=== PATIENT | female | born 1995 | race Caucasian/White ===

== ENCOUNTER 2019-01-15 00:24 | Inpatient (IN) | payer BC ==
[2019-01-15] MEDS ORDERED: Water For Irrigation,Sterile 1,000 ML Container IRR PRN (00:42)
[2019-01-15] MEDS ORDERED: Sodium Chloride 0.9% 2.5 ML Syringe FLUSH PRN (00:42)
[2019-01-15] MEDS ORDERED: Ondansetron 4 MG/2 ML SDV IV PRN (00:42)
[2019-01-15] MEDS ORDERED: Lidocaine 1% 50 ML MDV INJECT PRN (00:42)
[2019-01-15] MEDS ORDERED: Tranexamic Acid 1,000 MG in Sodium Chloride 0.9% 100 ML IV PRN (00:42)
[2019-01-15] MEDS ORDERED: Terbutaline 1 MG/ML SDV SUBCUT PRN (00:42)
[2019-01-15] MEDS ORDERED: Nalbuphine 10 MG/1 ML Vial IVPUSH PRN (00:42)
[2019-01-15] MEDS ORDERED: Methylergonovine 0.2 MG/1 ML Amp IM PRN (00:42)
[2019-01-15] MEDS ORDERED: Misoprostol 200 MCG Tab PO PRN (00:42)
[2019-01-15] MEDS ORDERED: Carboprost Tromethamine 250 MCG/1 ML Amp IM PRN (00:42)
[2019-01-15] MEDS ORDERED: Sodium Chloride 0.9% 10 ML Syringe FLUSH PRN (00:42)
[2019-01-15] MEDS ORDERED: Butorphanol 1 MG/ML SDV IVPUSH PRN (00:42)
[2019-01-15] MEDS ORDERED: Sodium Chloride 0.9% 10 ML SDV IV PRN (00:42)
[2019-01-15] MEDS ORDERED: Oxytocin/0.9 % Sodium Chloride 30 UNIT/500 ML BAG IV SCH ×2 (00:45)
[2019-01-15] MEDS: Lactated Ringers 1,000 ML IV SCH ×3 (01:36→10:58)
[2019-01-15] MEDS ORDERED: Calcium Carbonate 500 MG Tab.Chew PO PRN (01:43)
[2019-01-15] MEDS ORDERED: fentaNYL 100 MCG/2 ML SDV ONE (09:26)
[2019-01-15] MEDS ORDERED: Lidocaine HCl/EPINEPHrine 5 ML IJ ONE (09:27)
[2019-01-15] MEDS ORDERED: Bupivacaine 0.5% 10 ML SDV ONE (09:58)
--- NOTE | 2019-01-15 10:30 | PCM.PREANE ---
Preanesthetic Assessment - Procedure Proposed Procedure: labor epidural - Anesthesia/Transfusion/Family Hx Anesthesia History: Prior Anesthesia Without Reaction Family History of Anesthesia Reaction: No Transfusion History: No Prior Transfusion(s) - Review of Systems General: No Symptoms Pulmonary: No Symptoms Cardiovascular: No Symptoms Gastrointestinal: No Symptoms Neurological: No Symptoms Other: Reports: None, Anxiety - Physical Assessment Height: 5 ft 5 in Weight: 186 kg ASA Class: 2 Mental Status: Alert & Oriented x3 Airway Class: Mallampati = 1 Dentition: Reports: Normal Dentition ROM/Head Extension: Full Lungs: Clear to Auscultation, Normal Respiratory Effort Cardiovascular: Regular Rate, Regular Rhythm - Lab Values: Laboratory Last Values WBC 11.74 K/uL (4.0-11.0) H 01/15/19 01:00 RBC 3.65 M/uL (4.30-5.90) L 01/15/19 01:00 Hgb 9.9 g/dL (12.0-16.0) L 01/15/19 01:00 Hct 31.2 % (36.0-46.0) L 01/15/19 01:00 MCV 85.5 fL (80.0-98.0) 01/15/19 01:00 MCH 27.1 pg (27.0-32.0) 01/15/19 01:00 MCHC 31.7 g/dL (31.0-37.0) 01/15/19 01:00 RDW Std Deviation 46.2 fl (28.0-62.0) 01/15/19 01:00 RDW Coeff of Toby 15 % (11.0-15.0) 01/15/19 01:00 Plt Count 165 K/uL (150-400) 01/15/19 01:00 MPV 11.30 fL (7.40-12.00) 01/15/19 01:00 Nucleated RBC % 0.0 /100WBC 01/15/19 01:00 Nucleated RBCs # 0 K/uL 01/15/19 01:00 Blood Type A POSITIVE 01/15/19 01:00 Antibody Screen NEGATIVE 01/15/19 01:00 - Allergies Allergies/Adverse Reactions: Allergies Allergy/AdvReac Type Severity Reaction Status Date / Time No Known Allergies Allergy Verified 01/15/19 00:26 - Blood Blood Available: No Product(s) Available: None - Anesthesia Plan Pre-Op Medication Ordered: None - Acknowledgements Anesthesia Type Planned: Epidural Pt an Appropriate Candidate for the Planned Anesthesia: Yes Alternatives and Risks of Anesthesia Discussed w Pt/Guardian: Yes Pt/Guardian Understands and Agrees with Anesthesia Plan: Yes PreAnesthesia Questionnaire - Past Health History Medical/Surgical History: Denies 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/Surgical History 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: Musculoskeletal History: Reports: Other (See Below) Other Musculoskeletal History: Broke right arm - Past Surgical History HEENT Surgical History: Reports: Other (See Below) Other HEENT Surgeries/Procedures: [place] teeth - SUBSTANCE USE Smoking Status *Q: Former Smoker Tobacco Use Within Last Twelve Months: Cigarettes Second Hand Smoke Exposure: Yes Recreational Drug Use History: No - CURRENT (IN HOUSE) MEDS Current Meds: Current Medications Butorphanol Tartrate (Stadol) 1 mg IVPUSH Q1H PRN PRN Reason: Pain Calcium Carbonate/Glycine (Tums) 1,000 mg PO Q2HR PRN PRN Reason: Indigestion Last Admin: 01/15/19 02:19 Dose: 1,000 mg Carboprost Tromethamine (Hemabate Ds) 250 mcg IM ASDIRECTED PRN PRN Reason: Post Hemorrhage Lactated Ringer's (Ringers, Lactated) 1,000 mls @ 150 mls/hr IV ASDIRECTED EDNA Last Admin: 01/15/19 09:57 Dose: 150 mls/hr Oxytocin/Sodium Chloride (Oxytocin 30 Unit/500 Ml-Ns) 30 unit in 500 mls @ 500 mls/hr IV TITRATE EDNA Oxytocin/Sodium Chloride (Oxytocin 30 Unit/500 Ml-Ns) 30 unit in 500 mls @ 2 mls/hr IV TITRATE EDNA; Protocol Last Titration: 01/15/19 08:30 Dose: 18 munits/min, 18 mls/hr Tranexamic Acid 1,000 mg/ (Sodium Chloride) 110 mls @ 660 mls/hr IV ONETIME PRN PRN Reason: Bleeding Lidocaine HCl (Xylocaine 1%) 50 ml INJECT ONETIME PRN PRN Reason: Laceration repair Methylergonovine Maleate (Methergine) 0.2 mg IM ASDIRECTED PRN PRN Reason: Post Hemorrhage Misoprostol (Cytotec) 200 mcg PO ONETIME PRN PRN Reason: Post Hemorrhage Nalbuphine HCl (Nubain) 10 mg IVPUSH Q1H PRN PRN Reason: Pain (severe 7-10) Last Admin: 01/15/19 08:55 Dose: 10 mg Ondansetron HCl (Zofran) 4 mg IV Q4H PRN PRN Reason: Nausea/Vomiting Sodium Chloride (Saline Flush) 10 ml FLUSH ASDIRECTED PRN PRN Reason: Keep Vein Open Sodium Chloride (Saline Flush) 2.5 ml FLUSH ASDIRECTED PRN PRN Reason: Keep Vein Open Sodium Chloride (Normal Saline) 10 ml IV ASDIRECTED PRN PRN Reason: IV Use Sterile Water (Sterile Water For Irrigation) 1,000 ml IRR ASDIRECTED PRN PRN Reason: delivery Terbutaline Sulfate (Brethine) 0.25 mg SUBCUT ASDIRECTED PRN PRN Reason: Tacysystole Discontinued Medications Bupivacaine HCl (Sensorcaine-Mpf 0.5%) Confirm Administered Dose 10 ml .ROUTE .STK-MED ONE Stop: 01/15/19 09:59 Fentanyl (Sublimaze) Confirm Administered Dose 100 mcg .ROUTE .STK-MED ONE Stop: 01/15/19 09:27 Fentanyl/Bupivacaine HCl (Ozpqydgm-Jbijn-De 2 Mcg/Ml-0.125%) Confirm Administered Dose 100 mls @ as directed .ROUTE .STK-MED ONE Stop: 01/15/19 09:27 Lidocaine/Epinephrine (Lidocaine 1.5%-Epi 1:200,000) Confirm Administered Dose 5 ml IJ .STK-MED ONE Stop: 01/15/19 09:28
--- NOTE | 2019-01-15 10:55 | PCM.DEL ---
L & D Note - General Info Date of Service: 01/15/19 Mother's Due Date: 01/18/19 - Delivery Note Labor: Augmented by Oxytocin, Induced by ARM Delivery Outcome: Livebirth Delivery Method: Spontaneous Vaginal Delivery-Single Presentation: Right Occiput Anterior (ELISA) Nuchal Cord: Present Prep: Povidone-Iodine (Betadine Anesthesia Type: Epidural Amniotic Fluid Description: Clear Episiotomy Type: None Laceration: None Placenta: Intact, Spontaneous Cord: 3 Vessels Resuscitation Needed: No : Suctioned Provider: Cori Russell Score 1 min: 8 Score 5 min: 9 Delivery Comments (Free Text/Narrative):: Jacque is a who came in for IOL. She delivered a liveborn female infant at 10:23 with scores of 8 at one minute and 9 at five minutes. Baby is named Carina and weighed 4140 gm. - General Info Date of Service: 01/15/19 - Patient Data Weight - Most Recent: 410 lb 0.957 oz Lab Results Last 24 Hours: Laboratory Results - last 24 hr 01/15/19 01/15/19 Range/Units 01:00 01:00 WBC 11.74 H (4.0-11.0) K/uL RBC 3.65 L (4.30-5.90) M/uL Hgb 9.9 L (12.0-16.0) g/dL Hct 31.2 L (36.0-46.0) % MCV 85.5 (80.0-98.0) fL MCH 27.1 (27.0-32.0) pg MCHC 31.7 (31.0-37.0) g/dL RDW Std Deviation 46.2 (28.0-62.0) fl RDW Coeff of Toby 15 (11.0-15.0) % Plt Count 165 (150-400) K/uL MPV 11.30 (7.40-12.00) fL Nucleated RBC % 0.0 /100WBC Nucleated RBCs # 0 K/uL Blood Type A POSITIVE Antibody Screen NEGATIVE Med Orders - Current: Current Medications Butorphanol Tartrate (Stadol) 1 mg IVPUSH Q1H PRN PRN Reason: Pain Calcium Carbonate/Glycine (Tums) 1,000 mg PO Q2HR PRN PRN Reason: Indigestion Last Admin: 01/15/19 02:19 Dose: 1,000 mg Carboprost Tromethamine (Hemabate Ds) 250 mcg IM ASDIRECTED PRN PRN Reason: Post Hemorrhage Lactated Ringer's (Ringers, Lactated) 1,000 mls @ 150 mls/hr IV ASDIRECTED EDNA Last Admin: 01/15/19 09:57 Dose: 150 mls/hr Oxytocin/Sodium Chloride (Oxytocin 30 Unit/500 Ml-Ns) 30 unit in 500 mls @ 500 mls/hr IV TITRATE EDNA Oxytocin/Sodium Chloride (Oxytocin 30 Unit/500 Ml-Ns) 30 unit in 500 mls @ 2 mls/hr IV TITRATE EDNA; Protocol Last Titration: 01/15/19 08:30 Dose: 18 munits/min, 18 mls/hr Tranexamic Acid 1,000 mg/ (Sodium Chloride) 110 mls @ 660 mls/hr IV ONETIME PRN PRN Reason: Bleeding Lidocaine HCl (Xylocaine 1%) 50 ml INJECT ONETIME PRN PRN Reason: Laceration repair Methylergonovine Maleate (Methergine) 0.2 mg IM ASDIRECTED PRN PRN Reason: Post Hemorrhage Misoprostol (Cytotec) 200 mcg PO ONETIME PRN PRN Reason: Post Hemorrhage Nalbuphine HCl (Nubain) 10 mg IVPUSH Q1H PRN PRN Reason: Pain (severe 7-10) Last Admin: 01/15/19 08:55 Dose: 10 mg Ondansetron HCl (Zofran) 4 mg IV Q4H PRN PRN Reason: Nausea/Vomiting Sodium Chloride (Saline Flush) 10 ml FLUSH ASDIRECTED PRN PRN Reason: Keep Vein Open Sodium Chloride (Saline Flush) 2.5 ml FLUSH ASDIRECTED PRN PRN Reason: Keep Vein Open Sodium Chloride (Normal Saline) 10 ml IV ASDIRECTED PRN PRN Reason: IV Use Sterile Water (Sterile Water For Irrigation) 1,000 ml IRR ASDIRECTED PRN PRN Reason: delivery Terbutaline Sulfate (Brethine) 0.25 mg SUBCUT ASDIRECTED PRN PRN Reason: Tacysystole Discontinued Medications Bupivacaine HCl (Sensorcaine-Mpf 0.5%) Confirm Administered Dose 10 ml .ROUTE .STK-MED ONE Stop: 01/15/19 09:59 Fentanyl (Sublimaze) Confirm Administered Dose 100 mcg .ROUTE .STK-MED ONE Stop: 01/15/19 09:27 Fentanyl/Bupivacaine HCl (Acaomsgt-Dughv-Qv 2 Mcg/Ml-0.125%) Confirm Administered Dose 100 mls @ as directed .ROUTE .STK-MED ONE Stop: 01/15/19 09:27 Lidocaine/Epinephrine (Lidocaine 1.5%-Epi 1:200,000) Confirm Administered Dose 5 ml IJ .STK-MED ONE Stop: 01/15/19 09:28 - Problem List & Annotations (1) Vaginal delivery SNOMED Code(s): 668109156 Code(s): O80 - ENCOUNTER FOR FULL-TERM UNCOMPLICATED DELIVERY Status: Acute Current Visit: Yes - Problem List Review Problem List Initiated/Reviewed/Updated: Yes - Assessment Assessment:: Jacque is now a who delivered a liveborn female infant. Mother remained stable and is in good condition. She plans to breastfeed and will receive normal cares. There were no known complications with delivery. - Plan Plan:: see dictation operative note by Dr. Russell
[2019-01-15] MEDS ORDERED: Witch Hazel Medicated Pads 40/Jar TOP PRN (10:57)
[2019-01-15] MEDS ORDERED: oxyCODONE 5 MG Tab PO PRN (10:57)
[2019-01-15] MEDS ORDERED: Ibuprofen 800 MG Tab PO PRN (10:57)
[2019-01-15] MEDS ORDERED: Lanolin 100% Cream 7 GM Tube TOP PRN (10:57)
[2019-01-15] MEDS ORDERED: Bisacodyl 10 MG Supp RECTAL PRN (10:57)
[2019-01-15] MEDS ORDERED: Acetaminophen 500 MG Tab PO PRN ×2 (10:57)
[2019-01-15] MEDS ORDERED: Docusate Sodium 100 MG Cap PO PRN (10:57)
[2019-01-15] MEDS ORDERED: Ibuprofen 400 MG Tab PO PRN (10:57)
[2019-01-15] MEDS ORDERED: Benzocaine/Menthol 20%-0.5% Spray 78 GM Cannister TOP PRN (10:57)
[2019-01-15] MEDS ORDERED: Ondansetron 4 MG/2 ML SDV IVPUSH PRN (10:57)
--- NOTE | 2019-01-15 17:26 | OR ---
SURGEON: Cori Russell M.D. DATE OF PROCEDURE: 01/15/2019 PREOPERATIVE DIAGNOSIS: A 39 and 3/7th weeks intrauterine , suspected macrosomia. POSTOPERATIVE DIAGNOSIS: A 39 and 3/7th weeks intrauterine , suspected macrosomia. SUPERVISOR [employer]ICATION [employer]SEMBLY: JAMIE Crowley. ANESTHESIA: Epidural. ESTIMATED BLOOD LOSS: Less than 300 mL. FINDINGS: Liveborn female. score 8 and 9, weighing 9 pounds 2 ounces. Normal- appearing placenta with a 3-vessel cord intact. Delivered spontaneously. Perineum intact. COMPLICATIONS: None known. DISPOSITION: Stable to recovery. PROCEDURES: Pitocin induction of labor, artificial rupture of membranes, term spontaneous vaginal delivery. BRIEF HISTORY: This is a 23-year-old female, G2, P1-0-0-1. She presents at 39 and 3/7th weeks' gestation for induction of labor. She has advanced dilatation at 3-4 cm dilation. She received Pitocin when she was 5 cm dilated. Artificial rupture of membranes were performed. Clear fluid was noted. She had category 1 heart tones. She received an epidural for pain control and progressed to complete. DESCRIPTION OF PROCEDURE: With the patient in dorsal lithotomy position, the patient pushed over 30-minute time period to a 5+ station. When she began pushing, she was noted to be right occiput posterior. Manual rotation of the head was performed with pushing and was easily rotated to right occiput anterior position, which immediately resulted in more descent of the head. She pushed to a 5+ station at which time, the head was delivered spontaneously and atraumatically over the perineum with support with subsequent delivery of the 's shoulders and body without any difficulty. The infant was bulb suctioned by nose and mouth. The cord was clamped x2 and cut after it had ceased to pulsate and the was handed to the mother in the presence of the nurse attending delivery. The infant was a liveborn female, score of 8 and 9, weighing 9 pounds 2 ounces. Upon inspection of the pelvis and perineum, there were no periurethral, vaginal sidewall, cervical, rectal, or perineal lacerations. Cord blood was collected for cord ABGs as well as routine cord blood sampling. Pitocin was initiated after delivery of the infant to assist with delivery of the placenta, which was delivered spontaneously. Evelin intact with 3 vessels. Final sponge, needle, and instrument count are correct. There were no known complications. Mother and baby remained in LDR in good condition. JASON DEGROOT /[id number]
--- NOTE | 2019-01-16 07:14 | PCM48HPAN ---
Post Anesthesia Note - EVALUATION WITHIN 48HRS OF ANESTHETIC Vital Signs in Normal Range: Yes Patient Participated in Evaluation: Yes Respiratory Function Stable: Yes Airway Patent: Yes Cardiovascular Function Stable: Yes Hydration Status Stable: Yes Pain Control Satisfactory: Yes Nausea and Vomiting Control Satisfactory: Yes Mental Status Recovered: Yes
--- NOTE | 2019-01-16 07:52 | PCM.PNPP ---
<Jacklyn Chaves - Last Filed: 01/16/19 07:47> - General Info Date of Service: 01/16/19 Admission Dx/Problem (Free Text): IOL for advanced cervical dilation; PPD1 Subjective Update: Jacque is a who states that she feels like she is improving. She denies pain and is well this morning. She is able to ambulate, urinate, eat, and pass gas without issues. Functional Status: Reports: Pain Controlled, Tolerating Diet, Ambulating, Urinating - Review of Systems General: Reports: No Symptoms Pulmonary: Reports: No Symptoms Cardiovascular: Reports: No Symptoms Gastrointestinal: Reports: No Symptoms Genitourinary: Reports: No Symptoms Musculoskeletal: Reports: No Symptoms Skin: Reports: No Symptoms Neurological: Reports: No Symptoms Psychiatric: Reports: No Symptoms - General Info Date of Service: 01/16/19 - Patient Data Vital Signs - Most Recent: Last Vital Signs Temp 97.7 F 01/16/19 04:28 Pulse 92 01/16/19 04:28 Resp 16 01/16/19 04:28 BP 133/72 01/16/19 04:28 Pulse Ox 99 01/16/19 04:28 Weight - Most Recent: 186 kg Lab Results - Last 24 Hours: Laboratory Results - last 24 hr 01/15/19 01/16/19 Range/Units 10:32 06:16 Hgb 9.2 L (12.0-16.0) g/dL Hct 29.9 L (36.0-46.0) % Cord ABG pH 7.125 L (7.18-7.38) Cord ABG Base Excess -11 L (-10--2) Cord VBG pH 7.208 L (7.25-7.45) Cord VBG Base Excess -9 (-10--2) Med Orders - Current: Current Medications Acetaminophen (Tylenol Extra Strength) 500 mg PO Q4H PRN PRN Reason: Pain Acetaminophen (Tylenol Extra Strength) 1,000 mg PO Q4H PRN PRN Reason: Pain Benzocaine/Menthol (Dermoplast Pain Relief 20%-0.5% [place]) 78 gm TOP ASDIRECTED PRN PRN Reason: Perineal Comfort Measure Bisacodyl (Dulcolax) 10 mg RECTAL ONETIME PRN PRN Reason: Constipation Docusate Sodium (Colace) 100 mg PO BID PRN PRN Reason: Constipation Emollient Ointment (Lansinoh Hpa) 0 gm TOP ASDIRECTED PRN PRN Reason: Sore Nipples Ibuprofen (Motrin) 400 mg PO Q4H PRN PRN Reason: Pain Last Admin: 01/15/19 19:54 Dose: 400 mg Ibuprofen (Motrin) 800 mg PO Q6H PRN PRN Reason: Pain Ondansetron HCl (Zofran) 4 mg IVPUSH Q6H PRN PRN Reason: Nausea/Vomiting Oxycodone HCl (Oxycodone) 5 mg PO Q2H PRN PRN Reason: Pain Witch Cyndee (Tucks) 1 pad TOP ASDIRECTED PRN PRN Reason: comfort care Discontinued Medications Bupivacaine HCl (Sensorcaine-Mpf 0.5%) Confirm Administered Dose 10 ml .ROUTE .[employer]-MED ONE Stop: 01/15/19 09:59 Last Admin: 01/16/19 07:23 Dose: Not Given Butorphanol Tartrate (Stadol) 1 mg IVPUSH Q1H PRN PRN Reason: Pain Calcium Carbonate/Glycine (Tums) 1,000 mg PO Q2HR PRN PRN Reason: Indigestion Last Admin: 01/15/19 02:19 Dose: 1,000 mg Carboprost Tromethamine (Hemabate Ds) 250 mcg IM ASDIRECTED PRN PRN Reason: Post Hemorrhage Fentanyl (Sublimaze) Confirm Administered Dose 100 mcg .ROUTE .[employer]-MED ONE Stop: 01/15/19 09:27 Last Admin: 01/16/19 07:22 Dose: Not Given Lactated Ringer's (Ringers, Lactated) 1,000 mls @ 150 mls/hr IV ASDIRECTED EDNA Last Admin: 01/15/19 10:58 Dose: 150 mls/hr Oxytocin/Sodium Chloride (Oxytocin 30 Unit/500 Ml-Ns) 30 unit in 500 mls @ 500 mls/hr IV TITRATE EDNA Oxytocin/Sodium Chloride (Oxytocin 30 Unit/500 Ml-Ns) 30 unit in 500 mls @ 2 mls/hr IV TITRATE EDNA; Protocol Last Titration: 01/15/19 08:30 Dose: 18 munits/min, 18 mls/hr Tranexamic Acid 1,000 mg/ (Sodium Chloride) 110 mls @ 660 mls/hr IV ONETIME PRN PRN Reason: Bleeding Fentanyl/Bupivacaine HCl (Krqftqyu-Bvvks-Nv 2 Mcg/Ml-0.125%) Confirm Administered Dose 100 mls @ as directed .ROUTE .STK-MED ONE Stop: 01/15/19 09:27 Last Admin: 01/16/19 07:17 Dose: Not Given Lidocaine HCl (Xylocaine 1%) 50 ml INJECT ONETIME PRN PRN Reason: Laceration repair Lidocaine/Epinephrine (Lidocaine 1.5%-Epi 1:200,000) Confirm Administered Dose 5 ml IJ .STK-MED ONE Stop: 01/15/19 09:28 Last Admin: 01/16/19 07:23 Dose: Not Given Methylergonovine Maleate (Methergine) 0.2 mg IM ASDIRECTED PRN PRN Reason: Post Hemorrhage Misoprostol (Cytotec) 200 mcg PO ONETIME PRN PRN Reason: Post Hemorrhage Nalbuphine HCl (Nubain) 10 mg IVPUSH Q1H PRN PRN Reason: Pain (severe 7-10) Last Admin: 01/15/19 08:55 Dose: 10 mg Ondansetron HCl (Zofran) 4 mg IV Q4H PRN PRN Reason: Nausea/Vomiting Sodium Chloride (Saline Flush) 10 ml FLUSH ASDIRECTED PRN PRN Reason: Keep Vein Open Sodium Chloride (Saline Flush) 2.5 ml FLUSH ASDIRECTED PRN PRN Reason: Keep Vein Open Sodium Chloride (Normal Saline) 10 ml IV ASDIRECTED PRN PRN Reason: IV Use Sterile Water (Sterile Water For Irrigation) 1,000 ml IRR ASDIRECTED PRN PRN Reason: delivery Last Admin: 01/15/19 11:29 Dose: 1,000 ml Terbutaline Sulfate (Brethine) 0.25 mg SUBCUT ASDIRECTED PRN PRN Reason: Tacysystole - Interaction Disposition, : Gobler in Room with Family Infant Interaction: Holding Infant Feeding: Breastfed ; Nursed Well Support Person: Significant Other - Recovery Exam Fundal Tone: Firm Fundal Level: 1 Fingerbreadths Below Umbilicus Fundal Placement: Midline Lochia Amount: Scant Lochia Color: Rubra/Red Perineum Description: Intact, Minimal Bruising/Swelling, Edematous Episiotomy/Laceration: None Bladder Status: Voiding Urinary Elimination: Voided - Exam General: Alert, Oriented HEENT: Pupils Equal, Pupils Reactive, EOMI, Mucous Membr. Moist/[place] Neck: Supple Lungs: Clear to Auscultation, Normal Respiratory Effort Cardiovascular: Regular Rate, Regular Rhythm GI/Abdominal Exam: Normal Bowel Sounds, Non-Tender, No Organomegaly, No Distention Extremities: Normal Inspection, Normal Range of Motion, Non-Tender, No Pedal Edema Skin: Warm, Dry, Intact Wound/Incisions: Healing Well Neurological: No New Focal Deficit Psy/Mental Status: Alert, Normal Affect, Normal Mood - Problem List & Annotations (1) Vaginal delivery SNOMED Code(s): 553714420 Code(s): O80 - ENCOUNTER FOR FULL-TERM UNCOMPLICATED DELIVERY Status: Acute Current Visit: Yes - Problem List Review Problem List Initiated/Reviewed/Updated: Yes - My Orders Last 24 Hours: My Active Orders 01/15/19 10:57 Acetaminophen [Tylenol Extra Strength] 1,000 mg PO Q4H PRN Acetaminophen [Tylenol Extra Strength] 500 mg PO Q4H PRN Benzocaine/Menthol [Dermoplast Pain Relief 20%-0.5% [place]] 78 gm TOP ASDIRECTED PRN Bisacodyl [Dulcolax] 10 mg RECTAL ONETIME PRN Docusate Sodium [Colace] 100 mg PO BID PRN Ibuprofen [Motrin] 400 mg PO Q4H PRN Ibuprofen [Motrin] 800 mg PO Q6H PRN Lanolin [Lansinoh HPA] See Dose Instructions TOP ASDIRECTED PRN Ondansetron [Zofran] 4 mg IVPUSH Q6H PRN Witch Cyndee [Tucks] 1 pad TOP ASDIRECTED PRN oxyCODONE 5 mg PO Q2H PRN Resuscitation Status Routine 01/15/19 11:04 Patient Status [ADT] Routine May Shower [RC] ASDIRECTED Up ad Lindsey [RC] ASDIRECTED Vital Signs [RC] PER UNIT ROUTINE Assess Lochia [WOMSER] Per Unit Routine Assess Uterine Involution [WOMSER] Per Unit Routine Peripheral IV Discontinue [OM.PC] Routine 01/15/19 Lunch Regular Diet [DIET] - Assessment Assessment:: Jacque is now a who PPD 1 for . She is improving, has not developed new symptoms, and vital signs are good and stable. She has a low hemoglobin at 9.2, but her pre-delivery hemoglobin was 9.9, which is reassuring. - Plan Plan:: discharge to home pending Dr. Russell's evaluation this morning continue routine PP cares pain medications prn <Cori Russell - Last Filed: 01/16/19 08:28> - Patient Data Vital Signs - Most Recent: Last Vital Signs Temp 36.5 C 01/16/19 07:40 Pulse 79 01/16/19 07:40 Resp 17 01/16/19 07:40 BP 118/57 L 01/16/19 07:40 Pulse Ox 98 01/16/19 07:40 Lab Results - Last 24 Hours: Laboratory Results - last 24 hr 01/15/19 01/16/19 Range/Units 10:32 06:16 Hgb 9.2 L (12.0-16.0) g/dL Hct 29.9 L (36.0-46.0) % Cord ABG pH 7.125 L (7.18-7.38) Cord ABG Base Excess -11 L (-10--2) Cord VBG pH 7.208 L (7.25-7.45) Cord VBG Base Excess -9 (-10--2) Med Orders - Current: Current Medications Acetaminophen (Tylenol Extra Strength) 500 mg PO Q4H PRN PRN Reason: Pain Acetaminophen (Tylenol Extra Strength) 1,000 mg PO Q4H PRN PRN Reason: Pain Benzocaine/Menthol (Dermoplast Pain Relief 20%-0.5% [place]) 78 gm TOP ASDIRECTED PRN PRN Reason: Perineal Comfort Measure Bisacodyl (Dulcolax) 10 mg RECTAL ONETIME PRN PRN Reason: Constipation Docusate Sodium (Colace) 100 mg PO BID PRN PRN Reason: Constipation Emollient Ointment (Lansinoh Hpa) 0 gm TOP ASDIRECTED PRN PRN Reason: Sore Nipples Ibuprofen (Motrin) 400 mg PO Q4H PRN PRN Reason: Pain Last Admin: 01/15/19 19:54 Dose: 400 mg Ibuprofen (Motrin) 800 mg PO Q6H PRN PRN Reason: Pain Ondansetron HCl (Zofran) 4 mg IVPUSH Q6H PRN PRN Reason: Nausea/Vomiting Oxycodone HCl (Oxycodone) 5 mg PO Q2H PRN PRN Reason: Pain Witch Cyndee (Tucks) 1 pad TOP ASDIRECTED PRN PRN Reason: comfort care Discontinued Medications Bupivacaine HCl (Sensorcaine-Mpf 0.5%) Confirm Administered Dose 10 ml .ROUTE .[employer] ONE Stop: 01/15/19 09:59 Last Admin: 01/16/19 07:23 Dose: Not Given Butorphanol Tartrate (Stadol) 1 mg IVPUSH Q1H PRN PRN Reason: Pain Calcium Carbonate/Glycine (Tums) 1,000 mg PO Q2HR PRN PRN Reason: Indigestion Last Admin: 01/15/19 02:19 Dose: 1,000 mg Carboprost Tromethamine (Hemabate Ds) 250 mcg IM ASDIRECTED PRN PRN Reason: Post Hemorrhage Fentanyl (Sublimaze) Confirm Administered Dose 100 mcg .ROUTE .[employer] ONE Stop: 01/15/19 09:27 Last Admin: 01/16/19 07:22 Dose: Not Given Lactated Ringer's (Ringers, Lactated) 1,000 mls @ 150 mls/hr IV ASDIRECTED EDNA Last Admin: 01/15/19 10:58 Dose: 150 mls/hr Oxytocin/Sodium Chloride (Oxytocin 30 Unit/500 Ml-Ns) 30 unit in 500 mls @ 500 mls/hr IV TITRATE EDNA Oxytocin/Sodium Chloride (Oxytocin 30 Unit/500 Ml-Ns) 30 unit in 500 mls @ 2 mls/hr IV TITRATE EDNA; Protocol Last Titration: 01/15/19 08:30 Dose: 18 munits/min, 18 mls/hr Tranexamic Acid 1,000 mg/ (Sodium Chloride) 110 mls @ 660 mls/hr IV ONETIME PRN PRN Reason: Bleeding Fentanyl/Bupivacaine HCl (Thgsadun-Agaug-Pn 2 Mcg/Ml-0.125%) Confirm Administered Dose 100 mls @ as directed .ROUTE .[employer] ONE Stop: 01/15/19 09:27 Last Admin: 01/16/19 07:17 Dose: Not Given Lidocaine HCl (Xylocaine 1%) 50 ml INJECT ONETIME PRN PRN Reason: Laceration repair Lidocaine/Epinephrine (Lidocaine 1.5%-Epi 1:200,000) Confirm Administered Dose 5 ml IJ .STK-MED ONE Stop: 01/15/19 09:28 Last Admin: 01/16/19 07:23 Dose: Not Given Methylergonovine Maleate (Methergine) 0.2 mg IM ASDIRECTED PRN PRN Reason: Post Hemorrhage Misoprostol (Cytotec) 200 mcg PO ONETIME PRN PRN Reason: Post Hemorrhage Nalbuphine HCl (Nubain) 10 mg IVPUSH Q1H PRN PRN Reason: Pain (severe 7-10) Last Admin: 01/15/19 08:55 Dose: 10 mg Ondansetron HCl (Zofran) 4 mg IV Q4H PRN PRN Reason: Nausea/Vomiting Sodium Chloride (Saline Flush) 10 ml FLUSH ASDIRECTED PRN PRN Reason: Keep Vein Open Sodium Chloride (Saline Flush) 2.5 ml FLUSH ASDIRECTED PRN PRN Reason: Keep Vein Open Sodium Chloride (Normal Saline) 10 ml IV ASDIRECTED PRN PRN Reason: IV Use Sterile Water (Sterile Water For Irrigation) 1,000 ml IRR ASDIRECTED PRN PRN Reason: delivery Last Admin: 01/15/19 11:29 Dose: 1,000 ml Terbutaline Sulfate (Brethine) 0.25 mg SUBCUT ASDIRECTED PRN PRN Reason: Tacysystole - Problem List & Annotations (1) Vaginal delivery SNOMED Code(s): 158711652 Code(s): O80 - ENCOUNTER FOR FULL-TERM UNCOMPLICATED DELIVERY Status: Acute Current Visit: Yes - Problem List Review Problem List Initiated/Reviewed/Updated: Yes - Assessment Assessment:: Patient was seen and examined by me and I agree with above.
== END 2019-01-16 13:30 | disposition home or self-care (01) | DRG 560 ==
LOC: MW.OBCHECK 00:24 → MW.OB 00:26 → OBSVTOIN 10:32 → MW.OB 10:32
PROVIDERS: ADMIT Obstetrics & Gynecology; ATTEND Obstetrics & Gynecology
PROC: 10E0XZZ Delivery of Products of Conception, External Approach (ICD-10-PCS; principal; 2019-01-15)
PROC: 10907ZC Drainage of Amniotic Fluid, Therapeutic from Products of Conception, Via Natural or Artificial Opening (ICD-10-PCS; 2019-01-15)
PROC: 3E0R3BZ Introduction of Anesthetic Agent into Spinal Canal, Percutaneous Approach (ICD-10-PCS; 2019-01-15)
DX: O69.81X0 Labor and delivery complicated by cord around neck, without compression, not applicable or unspecified (principal); Z3A.39 39 weeks gestation of pregnancy; Z37.0 Single live birth; Z87.891 Personal history of nicotine dependence
CPT/HCPCS: 36415; 51702; 59025; 59409; 82803; 85014; 85018; 85027; 86850; 86900; 86901; A9270-GY; J2300; J2590; J7120

== ENCOUNTER 2023-11-12 08:40 | Day surgery (SDC) | payer BC, OTHER ==
[~2023-11-12 08:40] MED LIST: Albuterol 0.083% 2.5 MG/3 ML Neb Soln NEB PRN; HYDROmorphone 1 MG/ML Syringe IVPUSH PRN; Metoclopramide 10 MG/2 ML SDV IVPUSH PRN; Morphine 2 MG/ML SYRINGE IVPUSH PRN; Naloxone 0.4 MG/ML SDV IVPUSH PRN; Ondansetron 4 MG/2 ML SDV IVPUSH PRN; droPERidol 5 MG/2 ML SDV IVPUSH PRN; fentaNYL 50 MCG/ML SDV IVPUSH PRN
[2023-11-12] MEDS ORDERED: Lactated Ringers 1,000 ML IV SCH (08:45)
[2023-11-12] MEDS ORDERED: Propofol 200 MG/20 ML SDV ONE (08:49)
[2023-11-12] MEDS ORDERED: propofoL 50 ML ONE (08:49)
[2023-11-12] MEDS ORDERED: fentaNYL 250 MCG/5 ML SDV ONE (08:49)
[2023-11-12] MEDS ORDERED: Scopalamine 1mg/3day Transdermal Patch TRDERM PRN (09:38)
[2023-11-12] MEDS ORDERED: Bupivacaine 0.5% 30 ML SDV ONE (09:39)
[2023-11-12] MEDS ORDERED: Midazolam 1 MG/ML 2 ML SDV ONE (09:41)
[2023-11-12] MEDS ORDERED: Famotidine 20 MG/2 ML SDV ONE (09:42)
[2023-11-12] MEDS ORDERED: Scopalamine 1mg/3day Transdermal Patch ONE (09:42)
[2023-11-12] MEDS ORDERED: Ondansetron 4 MG/2 ML SDV ONE ×2 (10:15→10:32)
[2023-11-12] MEDS ORDERED: Dexamethasone 4 MG/ML 5 ML MDV ONE ×2 (10:15→10:32)
[2023-11-12] MEDS ORDERED: cefOXitin 1 GM Vial ONE (10:18)
== END 2023-11-12 11:50 | disposition home or self-care (01) ==
LOC: MW.SDS 08:40
PROVIDERS: ATTEND Surgery
DX: L05.01 Pilonidal cyst with abscess (principal); E66.9 Obesity, unspecified; Z68.34 Body mass index [BMI] 34.0-34.9, adult; Z86.16 Personal history of COVID-19; Z87.891 Personal history of nicotine dependence
CPT/HCPCS: 11770; 81025; A9270; J0131; J0665; J0694; J1100; J2250; J2405; J2704; J3010; J3490; J7120; 00300

== ENCOUNTER 2024-11-14 11:13 | Emergency (ER) | payer BC ==
[2024-11-14] MEDS: Sodium Chloride 0.9% 1,000 ML IV ONE (12:04)
[2024-11-14] MEDS: HYDROmorphone 0.5 MG/0.5 ML Syringe IVPUSH ONE ×3 (12:04→13:56)
[2024-11-14] MEDS: Ondansetron 4 MG/2 ML SDV IVPUSH ONE (12:04)
[2024-11-14] MEDS ORDERED: Naloxone 0.4 MG/ML SDV IVPUSH PRN (12:25)
[2024-11-14] MEDS: Propofol 200 MG/20 ML SDV IVPUSH ONE ×2 (14:12→14:15)
[2024-11-14] MEDS: Ketorolac 30 MG/ML SDV IVPUSH ONE ×2 (15:51→17:07)
== END 2024-11-14 17:32 ==
LOC: MW.ED 11:13
DX: S82.891A Other fracture of right lower leg, initial encounter for closed fracture (principal); E66.9 Obesity, unspecified; Z68.29 Body mass index [BMI] 29.0-29.9, adult; Z79.899 Other long term (current) drug therapy; W00.0XXA Fall on same level due to ice and snow, initial encounter
CPT/HCPCS: 27788; 73562; 73610; 96361; 96374; 96375; 96376; 99284; J1885; J2405; J2704; J7030; 27825; 99283